=== PATIENT | male | born 1950 | race Caucasian/White ===

== ENCOUNTER → 2022-02-04 | Outpatient (CLI) | payer MEDICARE ==
[~2022-02-04] MED LIST: ACET650T15 PO; IBUP-1022 PO; LISI10TA22 PO; MAGN500C2 PO; OMEG10002 PO; PRESCAP PO; TAMS1CAP17 PO
== END ==
LOC: M LABSMTC 10:16
PROVIDERS: ATTEND Anesthesiology
DX: Z01.812 Encounter for preprocedural laboratory examination (principal); Z11.52 Encounter for screening for COVID-19

== ENCOUNTER 2022-02-09 08:03 | Day surgery (SDC) | payer MEDICARE ==
[~2022-02-09] VITALS: Ht 182.9 cm; Wt 98.0 kg
[~2022-02-09 08:03] MED LIST changes: +BSS IRRIG/VANCO(10MG)/TOBRA(5MG)/EPINEPH(1:1000-0.5CC)500ML BAG-ORONLY IR ONE; +CEFUROXIME 1MG/0.1ML INTRACAMERAL INJ As Ordered ONE; +LIDOCAINE 1% SDV 5ML VIAL As Ordered ONE; +LIDOCAINE 3.5 % 1ML OPHTH TOPICAL GEL OU ONE; +MIDAZOLAM INJ 2MG/2ML VIAL (J2250 PER 1MG) As Ordered ONE; +OFLOXACIN 0.3 % (OCUFLOX) OPTH SOL 5ML OS ONE; +PHENYLEPHRINE HCL 10 % OPHTH. SOL 5ML OS PRN
[2022-02-09] MEDS: CYCLOPENTOLATE 1% OPHTH SOLN 2 ML BTL OS SCH ×3 (08:47→08:56)
[2022-02-09] MEDS: TROPICAMIDE 1% OPHTH SOLN 2ML OS SCH ×3 (08:47→08:56)
[2022-02-09] MEDS: PHENYLEPHRINE 2.5% OPHTH SOL 2ML OS SCH ×3 (08:48→08:56)
[2022-02-09] MEDS ORDERED: ACETYLCHOLINE OPHTH SOLN 1% 2ML (MIOCHOL-E) As Ordered ONE (09:52)
[2022-02-09 10:18] VITALS: BP 136/88
[2022-02-09] MEDS ORDERED: fentaNYL 100 MCG/2 ML INJECTION As Ordered ONE (11:06)
== END 2022-02-09 10:20 | disposition home or self-care (01) ==
LOC: M SDC 08:03
PROVIDERS: ATTEND Ophthalmology
DX: H25.12 Age-related nuclear cataract, left eye (principal); I10 Essential (primary) hypertension; K57.92 Diverticulitis of intestine, part unspecified, without perforation or abscess without bleeding; K21.9 Gastro-esophageal reflux disease without esophagitis; I73.9 Peripheral vascular disease, unspecified; Z79.899 Other long term (current) drug therapy; N40.0 Benign prostatic hyperplasia without lower urinary tract symptoms; Z87.891 Personal history of nicotine dependence
CPT/HCPCS: 66984; C1783; J0697; J2250; J3010; V2632